=== PATIENT | female | born 1980 | race Caucasian/White ===

== ENCOUNTER 2017-01-10 20:20 | Emergency (ER) | payer MEDICAID ==
[~2017-01-10] VITALS: Ht 162.6 cm; Wt 56.5 kg
[~2017-01-10 20:20] MED LIST: AMIT25TA9 PO; IBUP-1542 PO
[2017-01-10 20:22] VITALS: Ht 162.6 cm; Wt 56.5 kg
--- NOTE | 2017-01-10 21:38 | ERA ---
ER Documentation Chief Complaint Date/Time DATE: 01/10/17 TIME: 21:37 Chief Complaint syncopal episode today at 5pm , fell down , w/ right elbow pain HPI The patient is a 36-year-old female, presenting to the ER because she felt dizzy , as if the room was spinning, then she possibly fainted about 5 PM today. She denies any head trauma complains of right elbow pain. She complains of frontal headache, denies neck pain, chest pain, dyspnea, abdominal pain, vomiting, dysuria, diarrhea, constipation. The right elbow pain is minimal. She does not smoke nor drink. 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 Medications Home Meds Active Scripts Meclizine Hcl* (Antivert*) 12.5 Mg Tab, 25 MG PO Q6H Y for DIZZINESS, #20 TAB Prov:CLARKE SNELL MD 01/10/17 Reported Medications Ibuprofen* (Advil*) 200 Mg Capsule, 200 MG PO Q6H Y for PAIN, CAP 01/10/17 Discontinued Reported Medications [none] Unknown Strength No Conflict Check 09/08/15 Discontinued Scripts Amitriptyline Hcl* (Amitriptyline Hcl*) 25 Mg Tablet, 25 MG PO QHS, #30 TAB Prov:DAVID WILLAMS NP 09/09/15 Ibuprofen* (Motrin*) 600 Mg Tab, 600 MG PO Q6H Y for PAIN AND OR ELEVATED TEMP, #30 TAB Prov:DAVID WILLAMS NP 09/09/15 Allergies Allergies: Coded Allergies: No Known Allergy (Unverified , 01/10/17) PMhx/Soc History of Surgery: Yes (ovarian cyst removal) Anesthesia Reaction: No Hx Neurological Disorder: No Hx Respiratory Disorders: No Hx Cardiac Disorders: No Hx Psychiatric Problems: No Hx Miscellaneous Medical Probl: No Hx Alcohol Use: No Hx Substance Use: No Hx Tobacco Use: No Physical Exam Vitals Vital Signs Date Time Temp Pulse Resp B/P Pulse Ox O2 Delivery O2 Flow Rate FiO2 01/10/17 20:22 98.8 77 20 126/80 100 Physical Exam Const: No acute distress. Head: Atraumatic. Eyes: Normal Conjunctiva. ENT: Normal External Ears, Nose and Mouth. Neck: Full range of motion. No meningismus. Resp: Clear to auscultation bilaterally. Cardio: Regular rate and rhythm. Abd: Soft, non distended, normal bowel sounds, non tender. Skin: No petechiae or rashes. Back: No midline or flank tenderness. Ext: Right elbow with minimal abrasions, full range of motion Neur: Awake and alert. No focal deficit Psych: Normal Mood and Affect. Result Diagram: 01/10/17214701/10/172147 Results 24 hrs Laboratory Tests Test 01/10/17 21:40 01/10/17 21:47 01/10/17 21:48 01/10/17 21:58 Urine Opiates Screen Negative Urine Barbiturates Negative Urine Amphetamines Screen Negative Urine Benzodiazepines Screen Negative Urine Cocaine Screen Negative Urine Cannabinoids Negative Bedside Urine pH (LAB) 6.0 Bedside Urine Protein (LAB) Negative Bedside Urine Glucose (UA) Negative Bedside Urine Ketones (LAB) Negative Bedside Urine Blood 2+ Bedside Urine Nitrite (LAB) Negative Bedside Urine Leukocyte Esterase (L Negative White Blood Count 8.110^3/ul Red Blood Count 4.0410^6/ul Hemoglobin 12.3g/dl Hematocrit 37.5% Mean Corpuscular Volume 92.8fl Mean Corpuscular Hemoglobin 30.4pg Mean Corpuscular Hemoglobin Concent 32.8g/dl Red Cell Distribution Width 12.2% Platelet Count 60654^3/UL Mean Platelet Volume 9.1fl Neutrophils % 62.7% Lymphocytes % 28.6% Monocytes % 7.1% Eosinophils % 1.0% Basophils % 0.4% Nucleated Red Blood Cells % 0.0/100WBC Neutrophils # 5.110^3/ul Lymphocytes # 2.310^3/ul Monocytes # 0.610^3/ul Eosinophils # 0.110^3/ul Basophils # 0.010^3/ul Nucleated Red Blood Cells # 0.010^3/ul Prothrombin Time 13.1Sec Prothrombin Time Ratio 1.0 INR International Normalized Ratio 0.99 Activated Partial Thromboplast Time 27.4Sec Sodium Level 143mmol/L Potassium Level 3.5mmol/L Chloride Level 106mmol/L Carbon Dioxide Level 29mmol/L Anion Gap 12 Blood Urea Nitrogen 13mg/dl Creatinine 0.59mg/dl Glucose Level 68mg/dl Calcium Level 9.2mg/dl Total Bilirubin 0.2mg/dl Direct Bilirubin 0.00mg/dl Indirect Bilirubin 0.2mg/dl Aspartate Amino Transf (AST/SGOT) 18IU/L Alanine Aminotransferase (ALT/SGPT) 25IU/L Alkaline Phosphatase 56IU/L Troponin I < 0.012ng/ml Total Protein 7.9g/dl Albumin 5.0g/dl Globulin 2.90g/dl Albumin/Globulin Ratio 1.72 Lipase 172U/L Ethyl Alcohol Level < 10.0mg/dl Bedside Glucose 76mg/dL Current Medications Medications (Trade) Dose Ordered Sig/Wendy Route PRN Reason Start Time Stop Time Status Last Admin Dose Admin Sodium Chloride (NS) 1,000 ml @ 1,000 mls/hr Q1H ONCE IV 01/10/17 22:00 01/10/17 22:59 DC 01/10/17 22:37 Meclizine HCl (Antivert) 25 mg ONCE ONCE PO 01/10/17 22:00 01/10/17 22:01 DC 01/10/17 22:35 Ondansetron HCl (Zofran Inj) 4 mg ONCE STAT IV 01/10/17 21:48 01/10/17 21:52 DC 01/10/17 22:35 Diphtheria/ Tetanus/Acell Pertussis (Adacel) 0.5 ml ONCE ONCE IM* 01/10/17 22:30 01/10/17 22:31 DC 01/10/17 22:36 Procedures/[place] [id number] Radiology Main Line: [phone] DIAGNOSTIC IMAGING REPORT Patient: LALIT MALLOY : 1980 Age: 36 Sex: F MR #: [id number] DOS: 01/10/17 2219 Ordering MD: CLARKE SNELL MD Location: E/R Room/Bed: PROCEDURE: CR Right Elbow CLINICAL INDICATION: Pain TECHNIQUE: AP, lateral, and an oblique radiographs were submitted. COMPARISON: None FINDINGS: Osseous Structures: The osseous elements appear well mineralized and intact. Joint Spaces: The joint spaces are well maintained. No joint effusion is evident. Soft Tissues: Appear unremarkable. IMPRESSION: Unremarkable right elbow series. Physician Cindy Date Time Electronically viewed and signed by Physician Cindy on 01/10/2017 23:10 RH/ CC: CLARKE SNELL MD [place] [id number] Radiology Main Line: [phone] DIAGNOSTIC IMAGING REPORT Patient: LALIT MALLOY : 1980 Age: 36 Sex: F MR #: [id number] DOS: 01/10/17 2148 Ordering MD: CLARKE SNELL MD Location: E/R Room/Bed: PROCEDURE: CT Head without. CLINICAL INDICATION: Syncope. TECHNIQUE: The study was performed utilizing a multi-slice, multidetector CT scanner. Direct spiral 1 mm axial sections were obtained through the head without the use of intravenous contrast material. 1 or more of the following dose reduction techniques were utilized: Automated exposure control, adjustment of the mA and/or kV according to patient's size, iterative reconstruction technique. Coronal and sagittal reformations were obtained. The images were reviewed on a PACS workstation. RADIATION DOSE: CTDIvol: 41.9 mGy DLP: 677.2 mGy-cm COMPARISON: No prior studies are available for comparison. FINDINGS: There is no intracranial hemorrhage, extra-axial fluid collection, mass lesion, midline shift or hydrocephalus. The ventricles, sulci and cisterns are within normal limits. The white matter is unremarkable. The cano-white matter differentiation is preserved. The basal cisterns are patent. The midline structures are intact. The orbits, calvarium and extracranial soft tissues are normal in appearance. The visualized paranasal sinuses, mastoid air cells and middle ear cavities are normally aerated. IMPRESSION: 1. No acute intracranial abnormality. No intracranial hemorrhage, extra-axial fluid collection, mass lesion or hydrocephalous. RPTAT: HGAS .Chris Adams MD, Date Time Electronically viewed and signed by .Chris Adams MD, MD on 01/10/2017 23: 01 .S/ CC: CLARKE SNELL MD EKG: Read by emergency physician Rate/Rhythm: Normal Sinus Rhythm 81 beats/min QRS, ST, T-waves: No ST elevation, no T inversion, incomplete right bundle branch block Impression: Abnormal EKG MEDICAL MAKING DECISION: The patient is a 36-year-old female, presenting with acute vertigo of unclear etiology, acute syncope most likely due to acute vertigo, acute right elbow contusion, acute dehydration. Accu-Chek was 76 in the ER, she was treated with 1 L normal saline for acute dehydration, Antivert 25 mg p.o. for dizziness, Zofran ODT for nausea and Tdap IM with good response. The differential diagnoses acute vertigo considered include but are not limited to central causes such as cerebellar infarct, cerebellar hemorrhage, cerebellar tumor, acoustic neuroma, peripheral causes such as benign positional vertigo, labyrinthitis, medication, Meniere's disease. The differential diagnoses acute syncope considered include but are not limited to bradyarrhythmia, tachyarrhythmias, aortic outflow obstruction, neurogenic including subarachnoid hemorrhage, orthostatic hypotension and all of its causes , hypoglycemia, dysautonomia, medications. Departure Diagnosis: Primary Impression: Syncope Additional Impressions: Vertigo Contusion of right elbow Condition: Good Comments I discussed the findings with the patient. I advised the patient to follow-up with the primary physician in about 1-2 days, sooner if needed and return if any concern. She was discharged with Antivert The patient's blood pressure was elevated (>120/80) but appears stable without evidence of hypertension emergency or urgency. The patient was counseled about the risks of hypertension and urged to pursue outpatient monitoring and therapy within a week with their primary care physician. CLARKE SNELL MD Jan 10, 2017 21:38
[2017-01-10 21:44] LABS: URINE BLOOD (Dip) POC 2+ (NEGATIVE)
[2017-01-10] MEDS ORDERED: ONDANSETRON 4 MG INJ IV STA (21:48)
[2017-01-10 21:56] LABS: ADD SCAN DIFF NO
[2017-01-10 21:58] LABS: BASOPHILS % 0.4 % (0.0-2.0); EOSINOPHILS # 0.1 10^3/ul (0.0-0.5); HEMATOCRIT 37.5 % (37.0-47.0); HEMOGLOBIN 12.3 g/dl (12.0-16.0); LYMPHOCYTES # 2.3 10^3/ul (0.8-2.9); LYMPHOCYTES % 28.6 % (15.0-51.0); MEAN CORPUSCULAR HEMOGLOBIN 30.4 pg (29.0-33.0); MEAN CORPUSCULAR HGB CONC 32.8 g/dl (32.0-37.0); MEAN CORPUSCULAR VOLUME 92.8 fl (82.0-101.0); MEAN PLATELET VOLUME 9.1 fl (7.4-10.4); MONOCYTE # 0.6 10^3/ul (0.3-0.9); MONOCYTES % 7.1 % (0.0-11.0); NEUTROPHIL # 5.1 10^3/ul (1.6-7.5); NEUTROPHILS % 62.7 % (39.0-77.0); PLATELET COUNT 320 10^3/UL (140-415); RED BLOOD COUNT 4.04 10^6/ul (4.20-5.40); RED CELL DISTRIBUTION WIDTH 12.2 % (11.5-14.5); WHITE BLOOD COUNT 8.1 10^3/ul (4.8-10.8)
[2017-01-10] MEDS ORDERED: SOD CHLORIDE 0.9% 1,000 ML IV ONE (22:00)
[2017-01-10] MEDS ORDERED: MECLIZINE 12.5 MG TAB PO ONE (22:00)
[2017-01-10 22:14] LABS: INR 0.99; PARTIAL THROMBOPLASTIN TIME 27.4 Sec (25.0-35.0); PROTIME 13.1 Sec (12.2-14.2)
[2017-01-10 22:16] LABS: ALANINE AMINOTRANSFERASE 25 IU/L (13-69); ALBUMIN/GLOBULIN RATIO 1.72; ALKALINE PHOSPHATASE 56 IU/L (42-121); ANION GAP 12 (8-16); ASPARTATE AMINO TRANSFERASE 18 IU/L (15-46); BILIRUBIN,INDIRECT 0.2 mg/dl (0-1.1); BILIRUBIN,TOTAL 0.2 mg/dl (0.2-1.3); BLOOD UREA NITROGEN 13 mg/dl (7-20); CALCIUM 9.2 mg/dl (8.4-10.2); CARBON DIOXIDE 29 mmol/L (21-31); CHLORIDE 106 mmol/L (97-110); CREATININE 0.59 mg/dl (0.44-1.00); GLUCOSE 68 mg/dl (70-220); POTASSIUM 3.5 mmol/L (3.5-5.1); SODIUM 143 mmol/L (135-144); TOTAL PROTEIN 7.9 g/dl (6.1-8.1)
[2017-01-10 22:28] LABS: TROPONIN-I < 0.012 ng/ml (0.00-0.12)
[2017-01-10] MEDS ORDERED: DIPHTH/TET/ACEL PERTUSS (ADULT) 0.5 ML VIAL IM* ONE (22:30)
[2017-01-10] MEDS ORDERED: IBUP200C11 PO (22:40)
--- NOTE | 2017-01-10 23:01 | RADRPT ---
PROCEDURE: CT Head without. CLINICAL INDICATION: Syncope. TECHNIQUE: The study was performed utilizing a multi-slice, multidetector CT scanner. Direct spira l 1 mm axial sections were obtained through the head without the use of intravenous contrast materia l. 1 or more of the following dose reduction techniques were utilized: Automated exposure control, adjustment of the mA and/or kV according to patient's size, iterative reconstruction technique. Co lacho and sagittal reformations were obtained. The images were reviewed on a PACS workstation. RADIATION DOSE: CTDIvol: 41.9 mGyDLP: 677.2 mGy-cm COMPARISON: No prior studies are available for comparison. FINDINGS: There is no intracranial hemorrhage, extra-axial fluid collection, mass lesion, midline shift or hyd rocephalus. The ventricles, sulci and cisterns are within normal limits. The white matter is unrem arkable. The cano-white matter differentiation is preserved. The basal cisterns are patent. The m idline structures are intact. The orbits, calvarium and extracranial soft tissues are normal in amanda earance. The visualized paranasal sinuses, mastoid air cells and middle ear cavities are normally ae rated. IMPRESSION: 1. No acute intracranial abnormality. No intracranial hemorrhage, extra-axial fluid collection, ma ss lesion or hydrocephalous. RPTAT: HGAS .Chris Adams MD, MD Date Time Electronically viewed and signed by .Chris Adams MD, on 01/10/2017 23:01 .S/
--- NOTE | 2017-01-10 23:10 | RADRPT ---
PROCEDURE: CR Right Elbow CLINICAL INDICATION: Pain TECHNIQUE: AP, lateral, and an oblique radiographs were submitted. COMPARISON: None FINDINGS: Osseous Structures: The osseous elements appear well mineralized and intact. Joint Spaces: The joint spaces are well maintained. No joint effusion is evident. Soft Tissues: Appear unremarkable. IMPRESSION: Unremarkable right elbow series. Physician Cindy Date Time Electronically viewed and signed by Gisela Vasquez Physician on 01/10/2017 23:10 /
[2017-01-10 23:11] LABS: BARBITURATES Negative (NEGATIVE); BENZODIAZEPINES Negative (NEGATIVE); CANNABINOIDS Negative (NEGATIVE); COCAINE Negative (NEGATIVE); OPIATES Negative (NEGATIVE)
[2017-01-10] MEDS ORDERED: MECL12.574 PO (23:45)
[2017-01-11 00:13] VITALS: BP 112/78; PULSE 77; RESP 20; TEMP 98.8
== END 2017-01-11 00:14 | disposition home or self-care (01) ==
LOC: E/R 20:20
DX: R55 Syncope and collapse (principal); R42 Dizziness and giddiness; S50.01XA Contusion of right elbow, initial encounter; R11.0 Nausea; W18.39XA Other fall on same level, initial encounter; Y92.9 Unspecified place or not applicable; Z23 Encounter for immunization
CPT/HCPCS: 36415; 70450; 73080; 80053; 80306; 80307; 81003; 82962; 83690; 84484; 85025; 85610; 85730; 90471; 90715; 93005; 96374; J2405; J7030; Z7502; Z7610

== ENCOUNTER 2018-03-07 18:40 | Inpatient (IN) | END 2018-03-09 20:00 | disposition home or self-care (01) | DRG 782 ==

== ENCOUNTER 2018-04-01 20:30 | Inpatient (IN) | END 2018-04-05 14:45 | disposition home or self-care (01) | DRG 775 ==